=== PATIENT | female | born 1965 | race Asian ===

== ENCOUNTER → 2021-12-20 09:38 | Outpatient (BNVA) | payer OTHER, SELFPAY | PROVIDERS: Visit Provider Internal Medicine | DX: R07.81 Pleurodynia (principal) | CPT/HCPCS: 99202 ==

== ENCOUNTER → 2021-12-24 11:12 | Outpatient (BNVA) | payer OTHER, SELFPAY | PROVIDERS: Visit Provider Internal Medicine | DX: R07.81 Pleurodynia (principal) | CPT/HCPCS: 99213 ==

== ENCOUNTER → 2021-12-30 11:45 | Outpatient (BNVA) | payer OTHER, SELFPAY | PROVIDERS: Visit Provider Internal Medicine | DX: R07.81 Pleurodynia (principal) | CPT/HCPCS: 99213 ==

== ENCOUNTER → 2022-01-14 08:03 | Outpatient (BNVA) | payer OTHER, SELFPAY | PROVIDERS: Visit Provider Internal Medicine | DX: S29.011D Strain of muscle and tendon of front wall of thorax, subsequent encounter (principal); X58.XXXD Exposure to other specified factors, subsequent encounter | CPT/HCPCS: 99213 ==